=== PATIENT | male | born 1980 | race African-American/Black ===

== ENCOUNTER 2020-09-14 04:24 | Day surgery (SDC) | payer OTHER ==
[2020-09-13 13:09] VITALS: BMI 33.3
[2020-09-14] MEDS ORDERED: MIDAZOLAM HCL 2 MG/2 ML SINGLE DOSE VIAL ONE (07:20)
[2020-09-14] MEDS ORDERED: LIDOCAINE HCL/PF 2% SDV 5ML VIAL ONE (07:38)
[2020-09-14] MEDS ORDERED: KETOROLAC TROMETHAMINE 30 MG/1 ML VIAL ONE (07:51)
[2020-09-14] MEDS ORDERED: PROPOFOL 20 ML ONE (08:23)
[2020-09-14] MEDS ORDERED: ACETAMINOPHEN 500 MG TABLET (FP) PO PRN (09:16)
[2020-09-14] MEDS ORDERED: oxyCODONE HCL 5 MG TABLET PO PRN (09:16)
[2020-09-14] MEDS ORDERED: LACTATED RINGERS SOLUTION 1,000 ML IV SCH (09:30)
[2020-09-14 10:35] VITALS: BP 120/83; PULSE 68; TEMP 96.8
== END 2020-09-14 10:15 | disposition home or self-care (01) ==
LOC: JASU-SURG 04:24
PROVIDERS: ATTEND Urology
PROC: 0TF3XZZ Fragmentation in Right Kidney Pelvis, External Approach (ICD-10-PCS; principal; 2020-09-14 08:15)
DX: N20.0 Calculus of kidney (principal)